=== PATIENT | female | born 1990 | race Caucasian/White ===

== ENCOUNTER 2018-09-29 09:36 | Emergency (ER) | payer MEDICAID ==
[~2018-09-29] VITALS: Ht 172.7 cm; Wt 97.8 kg
[~2018-09-29 09:36] MED LIST: ONDA4TAB10 PO; PROM25SU34 RC
--- NOTE | 2018-09-29 09:57 | NUR ---
pt to ed for intermittent n/v with associated epigastric pain x2 weeks. connected to all monitors. vss on ra. blanket provided. no other needs at this time. call light within reach. awaiting edmd assessment and orders.
[2018-09-29] MEDS ORDERED: ONDANSETRON 2MG/ML, 2ML ONE (10:18)
[2018-09-29] MEDS ORDERED: SODIUM CHLORIDE FLUSH 10ML SYR IVF ONE (10:30)
[2018-09-29] MEDS ORDERED: SODIUM CHLORIDE 0.9% 1,000ML IVBOLUS ONE (10:30)
[2018-09-29] MEDS ORDERED: ONDANSETRON 2MG/ML, 2ML IVPush ONE (10:30)
[2018-09-29] MEDS ORDERED: MECLIZINE CHEWABLE 25 MG TAB ONE (10:40)
[2018-09-29 10:44] LABS: BASOPHILS # (AUTO) 0.06 x10^3/uL (0-0.1); BASOPHILS % (AUTO) 1 % (0-1); EOSINOPHILS # (AUTO) 0.01 x10^3/uL (0-0.4); EOSINOPHILS % (AUTO) 0 % (1-7); LYMPHOCYTES # (AUTO) 1.48 x10^3/uL (1-3.4); LYMPHOCYTES % (AUTO) 17 % (22-44); MD NO; MEAN CORPUSCULAR HEMOGLOBIN 31.8 pg (27.0-34.8); MEAN CORPUSCULAR HGB CONC 34.4 g/dL (32.4-35.8); MEAN CORPUSCULAR VOLUME 92.5 fL (80-100); MEAN PLATELET VOLUME 9.8 fL (7.4-10.4); MONOCYTES # (AUTO) 0.43 x10^3/uL (0.2-0.8); MONOCYTES % (AUTO) 5 % (2-9); NEUTROPHILS # (AUTO) 6.97 x10^3/uL (1.8-6.8); NEUTROPHILS % (AUTO) 78 % (42-75); PLATELET COUNT 224 x10^3/uL (130-400); RED BLOOD COUNT 4.72 x10^6/uL (3.82-5.3); RED CELL DISTRIBUTION WIDTH 14.2 % (9.6-15.2)
--- NOTE | 2018-09-29 10:51 | NUR ---
pt currently mensing. per edmd, ok to straight cath. pt to xr at this time.
[2018-09-29 10:53] LABS: ALANINE AMINOTRANSFERASE 21 U/L (12-78); ALBUMIN 3.7 g/dL (3.4-5.0); ANION GAP 7 mmol/L (5-15); CALCIUM 8.9 mg/dL (8.5-10.1); CHLORIDE 108 mmol/L (98-107); CREATININE 0.82 mg/dL (0.55-1.02)
[2018-09-29 10:57] LABS: ALKALINE PHOSPHATASE 64 U/L (45-117); BILIRUBIN,TOTAL 0.6 mg/dL (0.2-1.0); TOTAL PROTEIN 6.6 g/dL (6.4-8.2)
[2018-09-29] MEDS ORDERED: MECLIZINE CHEWABLE 25 MG TAB PO ONE (11:00)
[2018-09-29 11:05] VITALS: BP 138/85
--- NOTE | 2018-09-29 11:21 | NUR ---
ua collected via straight cath. awaiting results. pt resting in room. vss. no needs expressed. call light within reach.
[2018-09-29 11:33] LABS: MICROSCOPIC AUTO
[2018-09-29 11:34] LABS: CULTURE INDICATED? NO
--- NOTE | 2018-09-29 11:42 | NUR ---
all resutls back at this time. chart up for recheck.
== END 2018-09-29 12:50 | disposition home or self-care (01) ==
LOC: ED 10:59
DX: K29.00 Acute gastritis without bleeding (principal); R42 Dizziness and giddiness
CPT/HCPCS: 36415; 74021; 80053; 81001; 83690; 84703; 85025; 93005; 96361; 96374; 99284; J2405; J7030

== ENCOUNTER 2020-09-28 11:04 | Emergency (ER) | payer MEDICAID ==
[~2020-09-28] VITALS: Ht 175.3 cm; Wt 68.5 kg
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
--- NOTE | 2020-09-28 12:03 | NUR ---
DR TRINDIAD AT BEDSIDE, PT ASSESSMENT AND POC DISCUSSED AND QUESTIONS ANSWERED.
[2020-09-28 12:22] LABS: BASOPHILS % (AUTO) 0 % (0-1); EOSINOPHILS % (AUTO) 0 % (1-7); LYMPHOCYTES % (AUTO) 16 % (22-44); MEAN CORPUSCULAR HEMOGLOBIN 32.3 pg (27.0-34.8); MEAN CORPUSCULAR HGB CONC 35.4 g/dL (32.4-35.8); MEAN PLATELET VOLUME 9.6 fL (7.4-10.4); MONOCYTES % (AUTO) 6 % (2-9); NEUTROPHILS % (AUTO) 78 % (42-75); PLATELET COUNT 232 x10^3/uL (130-400); RED BLOOD COUNT 5.18 x10^6/uL (3.82-5.3); RED CELL DISTRIBUTION WIDTH 13.8 % (9.6-15.2)
[2020-09-28 12:25] LABS: MD NO
[2020-09-28 12:35] LABS: ALBUMIN 4.2 g/dL (3.4-5.0); ANION GAP 4 mmol/L (5-15); CALCIUM 9.4 mg/dL (8.5-10.1); CHLORIDE 101 mmol/L (98-107); CREATININE 0.98 mg/dL (0.55-1.02)
[2020-09-28 12:39] LABS: ALANINE AMINOTRANSFERASE 46 U/L (12-78); ALKALINE PHOSPHATASE 61 U/L (45-117); TOTAL PROTEIN 7.3 g/dL (6.4-8.2)
[2020-09-28 12:42] LABS: MICROSCOPIC INDICATED
[2020-09-28] MEDS ORDERED: METOCLOPRAMIDE 5 MG/ML, 2ML ONE (12:45)
[2020-09-28] MEDS ORDERED: DIPHENHYDRAMINE 50 MG/ML, 1ML ONE (12:45)
[2020-09-28] MEDS ORDERED: ONDANSETRON 2MG/ML, 2ML ONE (12:46)
--- NOTE | 2020-09-28 12:55 | NUR ---
PT MED NOTED FOR N/V. IVF INFUSING W/O DIFFICULTY. VSS, CALL LIGHT W/I REACH
[2020-09-28] MEDS ORDERED: METOCLOPRAMIDE 5 MG/ML, 2ML IVPush ONE (13:00)
[2020-09-28] MEDS ORDERED: ONDANSETRON 2MG/ML, 2ML IVPush ONE (13:00)
[2020-09-28] MEDS ORDERED: DIPHENHYDRAMINE 50 MG/ML, 1ML IV ONE (13:00)
[2020-09-28] MEDS ORDERED: SODIUM CHLORIDE 0.9% 1,000ML IVBOLUS ONE (13:00)
--- NOTE | 2020-09-28 13:45 | NUR ---
SPRITE AT BEDSIDE. PT REFUSSING TO TRY ANY PO AT THIS TIME.
--- NOTE | 2020-09-28 13:57 | NUR ---
PT CONTINUES TO REFUSE TO TRY ANY LIQUIDS. PT AGREES TO TRY ICE CHIPS. ICE CHIPS AT BEDSIDE. PROVIDER UPDATED.
[2020-09-28 13:58] VITALS: BP 124/77
[2020-09-28] MEDS ORDERED: POTASSIUM CHLORIDE 20 MEQ TAB.ER.PRT PO ONE (14:00)
[2020-09-28] MEDS ORDERED: POTASSIUM CHLORIDE 20 MEQ TAB.ER.PRT ONE (14:03)
--- NOTE | 2020-09-28 14:08 | NUR ---
DISCUSSED PT REFUSAL OF PO LIQUIDS WITH PROVIDER. PT HAS NOT VOMITED SINCE ARRIVAL.
--- NOTE | 2020-09-28 14:09 | NUR ---
PT ENCOURAGED TO TAKE POTASSIUM AND TO HAVE SIPS OF WATER AND SMALL BITES OF SALTINES. PT COOPERATIVE. WILL MONITOR FOR EMESIS
--- NOTE | 2020-09-28 14:26 | NUR ---
PT SEEMS TO BE TOLLERATING PO FLUIDS. HAS HAD APPROX 100ML OF WATER W/O EMESIS. CHART UP FOR RECHECK
--- NOTE | 2020-09-28 14:41 | NUR ---
PT REQUESTS "ENMA". CLEAR LIQ DIET TRAY ORDERED.
--- NOTE | 2020-09-28 15:28 | NUR ---
Patient/Caregiver given discharge instructions and they have confirmed that they understand the instructions. Patient ambulatory with steady gait.
== END 2020-09-28 15:29 | disposition home or self-care (01) ==
LOC: ED 13:17
DX: E86.0 Dehydration (principal); R11.2 Nausea with vomiting, unspecified; E87.6 Hypokalemia; R10.13 Epigastric pain
CPT/HCPCS: 36415; 80053; 81001; 83690; 84703; 85025; 87086; 96361; 96374; 96375; 99284; J1200; J2405; J2765; J7030